=== PATIENT | male | born 1965 | race Caucasian/White ===

== ENCOUNTER 2017-06-22 13:47 | Observation (INO) | payer OTHER ==
[~2017-06-22] VITALS: Wt 88.5 kg
[2017-06-22] VITALS (16 sets, daily range): BP systolic 124–151; BP diastolic 73–89; PULSE 60–80; RESP 16–25
[2017-06-22 14:36] LABS: ADD UMIC NO; UR ASCORBIC ACID 40 mg/dL (NEGATIVE); UR BILIRUBIN (Dip) NEGATIVE (NEGATIVE); UR BLOOD (Dip) NEGATIVE (NEGATIVE); UR CLARITY CLEAR (CLEAR); UR COLOR YELLOW (YELLOW); UR GLUCOSE (Dip) NEGATIVE (NEGATIVE); UR KETONES (Dip) NEGATIVE (NEGATIVE); UR LEUKOCYTE ESTERASE (Dip) NEGATIVE Leu/ul (NEGATIVE); UR NITRITE (Dip) NEGATIVE (NEGATIVE); UR TOTAL PROTEIN (Dip) NEGATIVE (NEGATIVE); UR UROBILINOGEN (Dip) 1+ mg/dL (NEGATIVE)
[2017-06-22] MEDS ORDERED: SOD CHLORIDE 0.9% 1,000 ML IV STA (15:15)
[2017-06-22 15:53] LABS: BASOPHILS % 0.2 % (0.0-2.0); EOSINOPHILS % 0.7 % (0.0-7.0); HEMATOCRIT 43.2 % (42.0-52.0); HEMOGLOBIN 14.8 g/dl (14.0-18.0); LYMPHOCYTES # 1.1 10^3/ul (0.8-2.9); LYMPHOCYTES % 20.2 % (15.0-51.0); MEAN CORPUSCULAR HEMOGLOBIN 31.4 pg (29.0-33.0); MEAN CORPUSCULAR HGB CONC 34.3 g/dl (32.0-37.0); MEAN CORPUSCULAR VOLUME 91.7 fl (82.0-101.0); MEAN PLATELET VOLUME 8.7 fl (7.4-10.4); MONOCYTE # 0.6 10^3/ul (0.3-0.9); MONOCYTES % 10.2 % (0.0-11.0); NEUTROPHIL # 3.8 10^3/ul (1.6-7.5); NEUTROPHILS % 68.3 % (39.0-77.0); PLATELET COUNT 325 10^3/UL (140-415); RED BLOOD COUNT 4.71 10^6/ul (4.70-6.10); RED CELL DISTRIBUTION WIDTH 12.1 % (11.5-14.5); WHITE BLOOD COUNT 5.6 10^3/ul (4.8-10.8)
--- NOTE | 2017-06-22 15:59 | RADRPT ---
PROCEDURE: Testicular ultrasound CLINICAL INDICATION: Pain/swelling. TECHNIQUE: Scrotal ultrasound was performed with sagittal and transverse views. Ly scale and co eddie imaging was performed. Images were reviewed on high resolution PACS monitors. COMPARISON: No available. FINDINGS: The right testicle measures 4.65 cm in length. There is normal size and echogenicity and morphology of the right testicle with normal blood flow. The right epididymis is normal. The left testicle me asures 4.77 cm in length. There is normal size and echogenicity and morphology of the left testicle with normal blood flow. The left epididymis is normal. Moderate bilateral hydrocele is seen. Soft tissues are unremarkable. No mass or cyst or other abno rmality is present. There is no evidence for a varicocele.. There is no evidence of inguinal hernia . IMPRESSION: 1. Bilateral moderate hydrocele. RPTAT: GG .Frankie Sutherland MD, MD Date Time Electronically viewed and signed by .Frankie Sutherland MD, MD on 06/22/2017 15:59 .Y/
--- NOTE | 2017-06-22 15:59 | RADRPT ---
PROCEDURE: Chest x-ray CLINICAL INDICATION: Swelling TECHNIQUE: Chest single view COMPARISON: None FINDINGS: The heart is normal in size. The pulmonary vessels are normal in caliber. The lungs are clear. Th e costophrenic angles are sharp. The visualized bony thorax is unremarkable. IMPRESSION: No acute cardiopulmonary disease. RPTAT: HH .Bhupinder Dover MD, MD Date Time Electronically viewed and signed by .Bhupinder Dover MD, MD on 06/22/2017 15:58 .W/
[2017-06-22 16:07] LABS: INR 0.9; PROTIME 12.1 Sec (12.2-14.2); PT RATIO 0.9
[2017-06-22 16:08] LABS: PARTIAL THROMBOPLASTIN TIME 23.7 Sec (25.0-35.0)
[2017-06-22 16:14] LABS: ALBUMIN 4.6 g/dl (3.3-4.9); ALBUMIN/GLOBULIN RATIO 1.53; BILIRUBIN,INDIRECT 0.5 mg/dl (0-1.1); BILIRUBIN,TOTAL 0.5 mg/dl (0.2-1.3); POTASSIUM 4.1 mmol/L (3.5-5.1); TOTAL PROTEIN 7.6 g/dl (6.1-8.1)
--- NOTE | 2017-06-22 16:14 | ERD ---
ER Documentation Chief Complaint Chief Complaint "broke private part", "swollen, black and blue, and painful".estelle fontana md HPI 51-year-old male presents with the history of pain and swelling and bruising on the left side of his penis today. It happened after an awkward movement with an erection at approximately 11 AM. He felt a pop. Denies any hematuria or fevers. Denies any pain or swelling of the testicles. ROS All systems reviewed and are negative except as per history of present illness. Allergies Allergies: Coded Allergies: Amoxicillin (Verified Allergy, Unknown, UPSET STOMACH, 06/07/07) PMhx/Soc History of Surgery: Yes (thyroidectomy) Anesthesia Reaction: No Hx Neurological Disorder: No Hx Respiratory Disorders: No Hx Cardiac Disorders: No Hx Psychiatric Problems: No Hx Miscellaneous Medical Probl: No Hx Alcohol Use: No Hx Substance Use: No Hx Tobacco Use: No Physical Exam Vitals Vital Signs Date Time Temp Pulse Resp B/P Pulse Ox O2 Delivery O2 Flow Rate FiO2 06/22/17 13:55 97.1 81 20 143/71 100 Physical Exam Const: [], Pleasant, not ill-appearing. Head: Atraumatic Eyes: Normal Conjunctiva ENT: Normal External Ears, Nose and Mouth. Neck: Full range of motion..~ No meningismus. Resp: Clear to auscultation bilaterally Cardio: Regular rate and rhythm, no murmurs Abd: Soft, non tender, non distended. Normal bowel sounds General exam-there is swelling of the penile shaft proximally with some ecchymosis to approximately 150% of size with a palpable hematoma extending to the base. There is no ecchymosis or swelling of the testicles are inguinal area. No blood at the meatus. Testicles are nontender normal size bilaterally and descended. Skin: No petechiae or rashes Back: No midline or flank tenderness Ext: No cyanosis, or edema Neur: Awake and alert Psych: Normal Mood and Affect Result Diagram: 06/22/17 1545 06/22/17 1545 Results 24 hrs Laboratory Tests Test 06/22/17 14:13 06/22/17 15:45 Urine Color YELLOW Urine Clarity CLEAR Urine pH 6.0 Urine Specific [place] 1.020 Urine Ketones NEGATIVEmg/dL Urine Nitrite NEGATIVEmg/dL Urine Bilirubin NEGATIVEmg/dL Urine Urobilinogen 1+mg/dL Urine Leukocyte Esterase NEGATIVELeu/ul Urine Hemoglobin NEGATIVEmg/dL Urine Glucose NEGATIVEmg/dL Urine Total Protein NEGATIVEmg/dl White Blood Count 5.610^3/ul Red Blood Count 4.7110^6/ul Hemoglobin 14.8g/dl Hematocrit 43.2% Mean Corpuscular Volume 91.7fl Mean Corpuscular Hemoglobin 31.4pg Mean Corpuscular Hemoglobin Concent 34.3g/dl Red Cell Distribution Width 12.1% Platelet Count 38660^3/UL Mean Platelet Volume 8.7fl Neutrophils % 68.3% Lymphocytes % 20.2% Monocytes % 10.2% Eosinophils % 0.7% Basophils % 0.2% Nucleated Red Blood Cells % 0.0/100WBC Neutrophils # 3.810^3/ul Lymphocytes # 1.110^3/ul Monocytes # 0.610^3/ul Eosinophils # 0.010^3/ul Basophils # 0.010^3/ul Nucleated Red Blood Cells # 0.010^3/ul Prothrombin Time 12.1Sec Prothrombin Time Ratio 0.9 INR International Normalized Ratio 0.90 Activated Partial Thromboplast Time 23.7Sec Sodium Level 135mmol/L Potassium Level 4.1mmol/L Chloride Level 96mmol/L Carbon Dioxide Level 28mmol/L Anion Gap 15 Blood Urea Nitrogen 15mg/dl Creatinine 1.00mg/dl Glucose Level 99mg/dl Calcium Level 9.0mg/dl Total Bilirubin 0.5mg/dl Direct Bilirubin 0.00mg/dl Indirect Bilirubin 0.5mg/dl Aspartate Amino Transf (AST/SGOT) 26IU/L Alanine Aminotransferase (ALT/SGPT) 34IU/L Alkaline Phosphatase 60IU/L Troponin I < 0.012ng/ml Total Protein 7.6g/dl Albumin 4.6g/dl Globulin 3.00g/dl Albumin/Globulin Ratio 1.53 Current Medications Medications (Trade) Dose Ordered Sig/Krystal Route PRN Reason Start Time Stop Time Status Last Admin Dose Admin Sodium Chloride (NS) 1,000 ml @ 1,000 mls/hr Q1H STAT IV 06/22/17 15:15 06/22/17 16:14 DC 06/22/17 15:31 Procedures/MDM Urine is negative for blood, leukocytes, glucose. Patient presents with signs and symptoms and history consistent with an acute penile fracture. No signs or symptoms to suggest urethral injury or testicular torsion or bacterial infection or ischemia.. Please see urology concert promoter Dr. Lambert and case was discussed. Given the classic history and physical findings he recommended exploration and repair if patient desires without further testing. Patient is concerned about deformity and wishes to proceed with repair. Ultrasound of the scrotum shows no evidence of acute abnormalities. Soft tissue ultrasound of the penis shows a hematoma with possible secondary evidence of rupture of the tunica albuginea. CBC and CMP normal. pt/ptt normal. EKG: Rate/Rhythm: [Normal Sinus Rhythm] rate equals 72 QRS, ST, T-waves: [No changes consistent w/ acute ischemia] Impression: [No evidence of ischemia or arrhythmia]. Impression-normal EKG. Chest X-ray 1V Interpreted by me: Soft Tissue: No acute abnormalities Bones: No acute abnormalities Mediastinum/Cardiac Silhouette/Lungs: [No acute abnormalities] impression- normal 1 view chest x-ray Departure Diagnosis: Primary Impression: Penile fracture Encounter type: initial encounter Qualified Code: S39.840A - Fracture of corpus cavernosum penis, initial encounter Condition: Stable MARGARITA CARO MD Jun 22, 2017 16:14
--- NOTE | 2017-06-22 16:33 | RADRPT ---
CLINICAL PROCEDURE: ULTRASOUND PENIS CLINICAL INDICATION: 51 years of age, male. Penile swelling. Evaluate for penile fracture. TECHNIQUE: Multiple transverse and longitudinal becker scale images were performed of the penis at the site of the patient's symptom with color Doppler. COMPARISON: None available FINDINGS: There is marked edema of the subcutaneous fat of the penis measuring 0.8 cm. Echogenicity of the co rpora appears normal without evidence of a corporal body hematoma. On one of the axial images, there is a 0.3 x 0.4 cm hypoechoic area at the dorsum of the penis contiguous with the corpus cavernosum that could represent an extra-albugineal hematoma that may be secondary evidence of disruption of th e underlying tunica. This was not noted by the crimper operator. Please note that dedicated penile Doppler was not performed and this study does not evaluate for vas cular injury. IMPRESSION: Marked edema in the subcutaneous fat of the penis. There is a suspected small extra-albugineal hemat rosa overlying the corpus cavernosum that could be secondary evidence of disruption of the underlying tunica. Repeat ultrasound evaluation with Doppler and squeezing the corpus cavernosum to evaluate f or color flow into this hematoma that could be diagnostic. Alternatively, the patient may benefit fr om further evaluation with MRI. Please note that a dedicated penile Doppler study was not performed and this study does not evaluate for erectile dysfunction. Study does not evaluate for causes for priapism. If there is clinical con cern for vascular injury, recommend dedicated penile Doppler US supervised by urology. Findings were discussed with Marjan Richardson by Dr. Paty Mota on June 22, 2017 at 04:25 p.m.. RPTAT: HCTS Physician Danny Date Time Electronically viewed and signed by Physician Danny on 06/22/2017 16:32 CS/
--- NOTE | 2017-06-22 18:44 | QN ---
Documentation Comment Patient is a 51-year-old male who has a fractured penis. The patient was seen by Dr. Lambert from urology who is taking him to the operating room for repair from the ER. The patient will need admission to the [facility] medical team. We have called [facility] and I have been waiting for over 30 minutes for a return call but I have not received a call back as of yet. I have reached out to Dr. Villatoro to inform her that the patient will need to be admitted to [facility] despite having [facility] because the patient needed urgent surgery. RUSSELL LIRA MD Jun 22, 2017 18:44
[2017-06-22] MEDS ORDERED: ACETAMINOPHEN 325 MG TAB PO PRN (19:00)
[2017-06-22] MEDS ORDERED: ONDANSETRON 4 MG INJ IV PRN ×3 (19:00→21:00)
[2017-06-22] MEDS ORDERED: FENTAnyl 50 MCG/ML VIAL ONE (19:04)
[2017-06-22] MEDS ORDERED: LIDOCAINE 1% (MDV) 20 ML INJ ONE (19:04)
[2017-06-22] MEDS ORDERED: PROPOFOL 20 ML ONE (19:04)
[2017-06-22] MEDS ORDERED: SUCCINYLCHOLINE CHLORIDE 100 MG/5 ML SYG IV ONE (19:04)
[2017-06-22] MEDS ORDERED: MIDAZOLAM 1 MG/ML 2 ML INJ ONE (19:04)
[2017-06-22] MEDS ORDERED: ROCURONIUM 50 MG INJ ONE (19:06)
[2017-06-22] MEDS ORDERED: FAMOTIDINE 20 MG INJ ONE (19:21)
[2017-06-22] MEDS ORDERED: ONDANSETRON 4 MG INJ ONE (19:21)
[2017-06-22] MEDS ORDERED: DEXAMETHASONE 4 MG/ML 1 ML INJ ONE (19:21)
[2017-06-22] MEDS ORDERED: METOCLOPRAMIDE 10 MG INJ ONE (19:21)
[2017-06-22] MEDS ORDERED: CEFAZOLIN 1 GM INJ ONE (19:27)
[2017-06-22] MEDS ORDERED: SUGAMMADEX SODIUM 200 MG/2 ML VIAL IV ONE (20:04)
[2017-06-22] MEDS ORDERED: MEPERIDINE 25 MG INJ ONE (20:21)
[2017-06-22] MEDS ORDERED: HYDROmorphONE (0.2 MG/ML) 10ML SYG IV PRN ×2 (20:30)
[2017-06-22] MEDS ORDERED: DIPHENHYDRAMINE 50 MG INJ IV PRN (20:30)
[2017-06-22] MEDS ORDERED: MEPERIDINE 25 MG INJ IV PRN (20:30)
[2017-06-22] MEDS ORDERED: HYDROCODONE/APAP (5/325) TAB PO PRN (21:00)
[2017-06-22] MEDS ORDERED: HYDROmorphONE 1 MG/ML SYG IM PRN ×2 (21:00)
--- NOTE | 2017-06-23 01:10 | OPR ---
DATE OF OPERATION: 06/22/2017 PREOPERATIVE DIAGNOSIS: Penile fracture. POSTOPERATIVE DIAGNOSIS: Large penile fracture. OPERATION PERFORMED: Repair of penile fracture. SURGEON: Frankie Lambert MD OPERATIVE INDICATION: This 51-year-old male was having sex on the side this morning when he hit his partner's thigh with a heavy thrust and felt a pop and instant detumescence of the penis and then p enile pain and ecchymoses. Workup revealed what appeared to be a penile fracture at the base of the left side of the corpora. OPERATIVE FINDINGS: There was a large defect in the left corpora with significant clot in the subcu taneous tissue and in the corpora. DESCRIPTION OF PROCEDURE: Under general anesthesia, the patient was prepped and draped in the supin e position. A 16-Madrigal catheter was placed easily and there was no bleeding around the catheter or in the urine. An incision was made on the left side of the penis at the junction of the pendulous p ortion of the penis and the body wall. This carried us right down to a significant subcutaneous hem atoma which was evacuated and right down to the large fracture in the left side of the corpora. The edges of the corpora were then identified. They were found to be fresh and the corpora was copious ly irrigated with antibiotic solution. The tunica albuginea was then closed with an interrupted 2-0 Vicryl. The defect was completely closed. The Redman's fascia was closed with 3-0 Vicryl. Subcutan eous tissue closed with 3-0 Vicryl. Skin was closed with chromic and Dermabond. A modified pressur e dressing was placed with Coban and fluffs and the penis taped to the anterior abdominal wall. At this point, the patient was awakened and brought to recovery room in stable condition. Dictated By: FRANKIE LAMBERT MD RS/LUIS ALBERTO Conf#: [id number] DID#: [id number] CC: RUSSELL LIRA MD;*End*
[2017-06-23] MEDS ORDERED: CEFAZOLIN 1 GM/50 ML (PMX) 50 ML IVPB SCH (07:00)
[2017-06-23 08:24] VITALS: BP 119/73; RESP 18
[2017-06-23] MEDS ORDERED: HYDROCODONE/APAP (5/325) TAB PO PRN (11:00)
--- NOTE | 2017-06-23 13:47 | HP ---
Date/Time of Note Date/Time of Note DATE: 06/23/17 TIME: 13:27 Assessment/Plan VTE Prophylaxis VTE Prophylaxis Intervention: SCD's Lines/Catheters IV Catheter Type (from Nrs): Saline Lock Urinary Cath still in place: No Reason Cath still needed: other (indicate) (Discontinued this morning) Assessment/Plan Assessment/Plan 51-year-old male with; 1. Penile fracture, large, status post repair, POD#1 Doing well Madrigal catheter removed Per urology okay to discharge home once able to urinate. Will discharge with a few pills of [place]. Disposition: Discharge home this afternoon once he urinates. HPI/ROS Admit Date/Time Admit Date/Time Jun 22, 2017 at 21:00 Hx of Present Illness Chief complaint: Penile pain History of presenting illness: This is a 51-year-old male with not much of a past medical history who presented the emergency department yesterday with penile pain. Patient had an erection earlier during the day, yesterday at 11 AM , apparently he felt a pop at that time and his penis was bending an awkward direction. He had pain afterwards along with some discoloration, he decided to come to the emergency department for evaluation. Patient was diagnosed with penile fracture. He was seen by urology, he was taken to the OR overnight, he was found to have a large penile fracture that had to be repaired. Postoperatively he is doing fairly well today, dressing has been changed by RN, Madrigal catheter removed, once he is able to urinate he will be discharged home today per urology. He is to follow-up with Dr. Lambert, urology in 1 week. ROS Constitutional: no complaints Eyes: no complaints ENT: no complaints Respiratory: no complaints Cardiovascular: no complaints Gastrointestinal: no complaints Genitourinary: other (Penile pain) Musculoskeletal: no complaints Skin: no complaints Neurologic: no complaints Endocrine: no complaints Lymphatic: no complaints Psychological: no complaints PMH/Family/Social Past Medical History Medical History: no pertinent history Past Surgical History Status post hernia repairs remotely Status post left meniscus surgery on 06/18 Status post broken jaw surgery in the past Status post right hip arthroscopic surgery remotely Family History Significant Family History: no pertinent family hx Social History Alcohol Use: none Smoking Status: Unknown if ever smoked Drug Use: none Exam/Review of Systems Vital Signs Vitals Vital Signs Date Time Temp Pulse Resp B/P Pulse Ox O2 Delivery O2 Flow Rate FiO2 06/23/17 08:24 98.2 77 18 119/73 96 06/22/17 23:35 Room Air 06/22/17 21:00 2.0 Intake and Output 06/22/17 06/22/17 06/23/17 15:00 23:00 07:00 Intake Total 2150 ml 540 ml Output Total 305 ml 2500 ml Balance 1845 ml -1960 ml Exam Constitutional: alert, oriented, well developed Respiratory: clear to auscultation, normal air movement Cardiovascular: nl pulses, regular rate and rhythm Gastrointestinal: non-tender, soft Musculoskeletal: nl extremities to inspection, nl gait and stance Extremities: normal pulses, other (No edema, clubbing or cyanosis) Neurological: COVERING MACHINE TENDER II-XII intact, nl mental status, nl speech, nl strength Labs Result Diagram: 06/22/17 1545 06/22/17 1545 Medications Medications Current Medications Acetaminophen/ Hydrocodone Bitart ([place] (5/325)) 1 tab Q4H PRN PO PAIN LEVEL 1 -5 Last administered on 06/23/17t 10:47; Admin Dose 1 TAB; Start 06/23/17 at 11:00 Procedures Procedures CLINICAL PROCEDURE: ULTRASOUND PENIS CLINICAL INDICATION: 51 years of age, male. Penile swelling. Evaluate for penile fracture. TECHNIQUE: Multiple transverse and longitudinal ly scale images were performed of the penis at the site of the patient's symptom with color Doppler. COMPARISON: None available FINDINGS: There is marked edema of the subcutaneous fat of the penis measuring 0.8 cm. Echogenicity of the corpora appears normal without evidence of a corporal body hematoma. On one of the axial images, there is a 0.3 x 0.4 cm hypoechoic area at the dorsum of the penis contiguous with the corpus cavernosum that could represent an extra-albugineal hematoma that may be secondary evidence of disruption of the underlying tunica. This was not noted by the manager oracle. Please note that dedicated penile Doppler was not performed and this study does not evaluate for vascular injury. IMPRESSION: Marked edema in the subcutaneous fat of the penis. There is a suspected small extra-albugineal hematoma overlying the corpus cavernosum that could be secondary evidence of disruption of the underlying tunica. Repeat ultrasound evaluation with Doppler and squeezing the corpus cavernosum to evaluate for color flow into this hematoma that could be diagnostic. Alternatively, the patient may benefit from further evaluation with MRI. Please note that a dedicated penile Doppler study was not performed and this study does not evaluate for erectile dysfunction. Study does not evaluate for causes for priapism. If there is clinical concern for vascular injury, recommend dedicated penile Doppler US supervised by urology. Findings were discussed with Marjan Richardson by Dr. Paty Mota on June 22, 2017 at 04:25 p.m.. RPTAT: HCTS Physician Danny Date Time Electronically viewed and signed by Physician Danny on 06/22/2017 16: 32 PROCEDURE: Testicular ultrasound CLINICAL INDICATION: Pain/swelling. TECHNIQUE: Scrotal ultrasound was performed with sagittal and transverse views. Ly scale and color imaging was performed. Images were reviewed on high resolution PACS monitors. COMPARISON: No available. FINDINGS: The right testicle measures 4.65 cm in length. There is normal size and echogenicity and morphology of the right testicle with normal blood flow. The right epididymis is normal. The left testicle measures 4.77 cm in length. There is normal size and echogenicity and morphology of the left testicle with normal blood flow. The left epididymis is normal. Moderate bilateral hydrocele is seen. Soft tissues are unremarkable. No mass or cyst or other abnormality is present. There is no evidence for a varicocele.. There is no evidence of inguinal hernia. IMPRESSION: 1. Bilateral moderate hydrocele. RPTAT: GG .Fransisco Sutherland MD, Date Time Electronically viewed and signed by .Fransisco Sutherland MD, on 06/22/2017 15:59 DATE OF OPERATION: 06/22/2017 PREOPERATIVE DIAGNOSIS: Penile fracture. POSTOPERATIVE DIAGNOSIS: Large penile fracture. OPERATION PERFORMED: Repair of penile fracture. SURGEON: Fransisco Lambert MD OPERATIVE INDICATION: This 51-year-old male was having sex on the side this morning when he hit his partner's thigh with a heavy thrust and felt a pop and instant detumescence of the penis and then penile pain and ecchymoses. Workup revealed what appeared to be a penile fracture at the base of the left side of the corpora. OPERATIVE FINDINGS: There was a large defect in the left corpora with significant clot in the subcutaneous tissue and in the corpora. DESCRIPTION OF PROCEDURE: Under general anesthesia, the patient was prepped and draped in the supine position. A 16-Madrigal catheter was placed easily and there was no bleeding around the catheter or in the urine. An incision was made on the left side of the penis at the junction of the pendulous portion of the penis and the body wall. This carried us right down to a significant subcutaneous hematoma which was evacuated and right down to the large fracture in the left side of the corpora. The edges of the corpora were then identified. They were found to be fresh and the corpora was copiously irrigated with antibiotic solution. The tunica albuginea was then closed with an interrupted 2-0 Vicryl. The defect was completely closed. The Redman's fascia was closed with 3-0 Vicryl. Subcutaneous tissue closed with 3-0 Vicryl. Skin was closed with chromic and Dermabond. A modified pressure dressing was placed with Coban and fluffs and the penis taped to the anterior abdominal wall. At this point, the patient was awakened and brought to recovery room in stable condition. Dictated By: FRANSISCO LAMBERT MD RS/ADRYAN SCHAEFFER Jun 23, 2017 13:41
--- NOTE | 2017-06-23 13:47 | PDOCDIS ---
Discharge Instructions CONDITION Patient Condition: Stable HOME CARE INSTRUCTIONS: Diet Instructions: Regular ACTIVITY: Activity Restrictions: Slowly Increase Activity Rest between Activity Avoid heavy lifting No Sexual Activity Do not Drive Bathing Restrictions: ShowerActivity Restrictions Comment: May shower tomorrow 06/24/17 FOLLOW UP/APPOINTMENTS Follow-up Plan Follow-up with primary care physician within 1-2 weeks Follow-up with urology, Dr. Lambert in 1 week ADRYAN CAPPS Jun 23, 2017 13:47
[2017-06-23] MEDS ORDERED: HYDR-3498 PO (13:48)
== END 2017-06-23 14:59 | disposition home or self-care (01) ==
LOC: FTE 13:47 → E/R 21:00 → MS1 21:00
PROVIDERS: ADMIT Legal Medicine; ATTEND Legal Medicine
DX: S39.840A Fracture of corpus cavernosum penis, initial encounter (principal); E03.9 Hypothyroidism, unspecified; E78.00 Pure hypercholesterolemia, unspecified; Z88.1 Allergy status to other antibiotic agents; X58.XXXA Exposure to other specified factors, initial encounter; Y93.89 Activity, other specified; Y92.9 Unspecified place or not applicable; Y99.9 Unspecified external cause status
CPT/HCPCS: 36415; 54437; 71010; 76536; 76870; 80053; 81003; 84484; 85025; 85610; 85730; 87086; 93005; 96361; 96374; J0690; J1100; J2175; J2250; J2405; J2765; J3010; J7030; Z7500; Z7502; Z7512; Z7610; 99217; G0378